=== PATIENT | male | born 1980 | race Caucasian/White ===

== ENCOUNTER → 2016-11-11 | Outpatient (CLI) | payer OTHER ==
[~2016-11-11] MED LIST: DESYREL100 MG PO; DICLOFENAC PO; FLEXERIL PO; GABAPENTIN300 MG PO; HYDROCODON-ACE1 EAC7 PO; IBUPROFEN800 MG PO; KEFLEX PO; KEFLEX500 M1 PO; LORTAB 5/500 TA1 TA1 PO; NEURONTIN PO; NO MEDICATIONS; TYLENOL #3 PO
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
== END | disposition home or self-care (01) ==
LOC: CNUC 08:34
DX: S83.519A Sprain of anterior cruciate ligament of unspecified knee, initial encounter (principal)
CPT/HCPCS: 78315; A9503

== ENCOUNTER → 2016-11-14 | Outpatient (CLI) | payer OTHER ==
--- NOTE | ~2016-11-14 | MR104 ---
[facility] A Service of [facility] RADIOLOGY TEXT RESULTS PATIENT: ENEIDA LOYA LOCATION: [facility] : 82 UNIT #: [id number] AGE: [address]: Juan Godinez MD SEX: M ORDER DR: [id number] [facility] [address] [place], [place] [address] [id number] O MR#: [id number] Acc #: [id number] NAME: ENEIDA LOYA. : 1980 SEX: M STUDY DATE/TIME: 11/14/2016 14:14 UNIT: [facility] ROOM: STUDY DESCRIPTION: MR Knee Wo Contrast Rt Attending Physician: Juan Godinez M.D. Referring Physician: Juan Godinez M.D. Ordering Physician: Juan Godinez M.D. Primary Care Physician: Lisseth Corbett [facility] REPORT This report is preliminary unless electronic signature is present. EXAM MRI of the right knee without contrast 11/14/2016 HISTORY Order states torn ACL. History sheet states right knee pain lateral side with sharp pain when walking and flexing the knee for 6 months. No reported trauma. Gel-Cap chacon the lateral pain site. 3 right knee surgeries. First was reportedly an ACL and MCL repair. Second surgery was for partial tear, and third surgery was for arthritis in the back of the patella. COMPARISON Right knee radiographs 03/10/2015, 04/11/2015, 06/02/2015, 10/14/2015, 11/03/2016; three-phase bone scan 11/11/2016; MRI right knee [facility], 09/16/2015 (report not available). TECHNIQUE Metal reduction factors were utilized. There are no operative reports available for correlation. FINDINGS There is a hdpy-ld-xsscgonc effusion without a popliteal cyst. There is mild motion degradation reportedly due to the patient's legs jerking when he was asleep. Repeat sequences were performed. There is minimal patella caroline. Articular cartilage of the patella is within normal limits. There is abnormal signal undermining the superior medial aspect of the femoral trochlear articular cartilage compatible with chondral delamination without a displaced flap. Quadriceps and patellar tendons are intact. Patient is status post ACL reconstruction. There is no visible continuous STS. [facility] A Service of [facility] RADIOLOGY TEXT RESULTS PATIENT: ENEIDA LOYA LOCATION: [facility] : 82 UNIT #: [id number] AGE: [address]: Juan Godinez MD SEX: M ORDER DR: graft. There is anterior tibial translation and PCL buckling suggestive of ACL - related joint laxity. There is prominent lateral intercondylar roof osseous hypertrophy or osteophyte formation. There is moderate myxoid degeneration of the PCL. The medial meniscus demonstrates mild myxoid degeneration without a tear. There is medial compartment marginal osteophyte formation. There is a full-thickness chondral defect of the periphery of the weightbearing medial femoral condyle measuring approximately 5 x 3 mm (AP by transverse). The MCL is intact. There is enthesopathic cyst formation and marrow edema at the posterior root insertion of the medial meniscus on the tibia. There is advanced lateral compartment arthrosis with extensive grade 4 lateral femoral condyle chondromalacia and grade 4 chondromalacia of the posterior half to two-thirds of the lateral tibial plateau. There is osteophyte formation. The mid body segment of the lateral meniscus is not visualized, has presumably been resected or macerated. There is a complex longitudinal tear on the posterior horn. The lateral collateral ligament complex and popliteus tendon are intact. There is lobulated synovial cyst or ganglion formation along the course of the popliteus muscle and tendon. There is also a synovial/ganglion cyst formation adjacent to the posterior central supracondylar femur. There are large ossified loose bodies posterior superior to the PCL. There is no marrow lesion or fracture. No major changes are noted from 09/16/2015. IMPRESSION 1. No prior operative reports are available for correlation. 2. Failed or torn ACL graft with evidence of ACL-related joint laxity. 3. Mucoid degeneration of the PCL. 4. 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 5. Advanced lateral compartment arthrosis with a complex tear of the posterior body and horn and non-visualized mid body segment. These findings may be in part secondary to partial lateral meniscectomy. 6. Medial meniscus and MCL are unremarkable. 7. 5 x 3 mm full-thickness chondral defect of the medial femoral condyle. 8. Joint effusion and loose bodies. 9. Synovial cyst/ganglia detailed above. 10. No major changes since a prior MRI performed at an outside institution on 09/16/2015. [facility]. [facility] A Service of [facility] RADIOLOGY TEXT RESULTS PATIENT: ENEIDA LOYA LOCATION: [facility] : 82 UNIT #: [id number] AGE: [address]: Juan Godinez MD SEX: M ORDER DR: Dictated by... Claudine Rojas M.D. THIS IS AN ELECTRONICALLY VERIFIED REPORT Claudine Rojas M.D. at 11/18/2016 11:56 AM [facility]/ro[facility] TD: 11/17/2016 18:34 JOB #: [id number] MRI CENTER REPORT Page 1 of 1 COPY
== END | disposition home or self-care (01) ==
LOC: CMRI 13:36
DX: S83.511A Sprain of anterior cruciate ligament of right knee, initial encounter (principal); M23.8X1 Other internal derangements of right knee; M17.11 Unilateral primary osteoarthritis, right knee; M23.221 Derangement of posterior horn of medial meniscus due to old tear or injury, right knee; M25.461 Effusion, right knee; M23.41 Loose body in knee, right knee
CPT/HCPCS: 73721

== ENCOUNTER 2017-01-16 01:24 | Emergency (ER) | payer OTHER ==
[2017-01-16 03:15] LABS: URINE SOURCE CLEAN CATCH
[2017-01-16 03:27] LABS: URINE APPEARANCE CLEAR; URINE BILIRUBIN NEG (NEG); URINE BLOOD NEG (NEG); URINE COLOR YELLOW; URINE GLUCOSE NEG (NEG); URINE KETONE NEG (NEG); URINE LEUKOCYTE ESTERASE NEG (NEG); URINE NITRATE NEG (NEG); URINE PH 6.5 (5-8); URINE PROTEIN NEG (NEG); URINE SPECIFIC GRAVITY 1.008 (1.003-1.035); URINE UROBILINOGEN 0.2 MG/DL (NEG)
[2017-01-16 03:59] LABS: CULTURE INDICATED? NO
== END 2017-01-16 05:00 | disposition left against medical advice (07) ==
LOC: CED 01:24
DX: Z53.21 Procedure and treatment not carried out due to patient leaving prior to being seen by health care provider (principal)
CPT/HCPCS: 81003; C9113; J2405